=== PATIENT | female | born 1995 | race Hispanic/Latino ===

== ENCOUNTER 2017-11-22 21:21 | Observation (INO) | payer OTHER ==
[2017-11-22] MEDS ORDERED: Sodium Chloride 0.9% 1,000 ML IV STA ×2 (22:08→22:58)
[2017-11-22] MEDS ORDERED: Iohexol 240 (50 ml) PO ONE (22:09)
--- NOTE | 2017-11-22 22:12 | ED PDOC ---
HPI: Abdomen Time Seen by Provider: 11/22/17 21:52 Chief Complaint (Nursing): GI Problem Chief Complaint (Provider): diarrhea History Per: Patient History/Exam Limitations: no limitations Onset/Duration Of Symptoms: Days (2) Current Symptoms Are (Timing): Still Present Location Of Pain/Discomfort: RLQ, LLQ, Suprapubic Quality Of Discomfort: Cramping, "Pain" Additional Complaint(s): 22 y/o female presents for evaluation of multiple episodes of watery diarrhea x 2 days. Associated lower abdominal pain. Patient states she was in an intense fitness competition on Monday, and on Monday noticed muscle aches which have since been getting worse, most notable right latissimus area. Denies fever, headache, dizziness, nausea/vomiting, extremity numbness/weakness, chest pain, shortness of breath, palpitations, urinary symptoms, recent travel, sick contacts. Past Medical History Reviewed: Historical Data, Nursing Documentation, Vital Signs Vital Signs: Last Vital Signs Temp 99.4 F 11/22/17 21:43 Pulse 65 11/22/17 21:43 Resp 18 11/22/17 21:43 BP 127/66 11/22/17 21:43 Pulse Ox 100 11/22/17 22:12 - Medical History PMH: No Chronic Diseases - Surgical History Surgical History: No Surg Hx - Family History Family History: States: No Known Family Hx - Living Arrangements Living Arrangements: With Family - Home Medications Home Medications: Ambulatory Orders Medication Instructions Recorded No Known Home Med 11/23/17 - Allergies Allergies/Adverse Reactions: Allergies Allergy/AdvReac Type Severity Reaction Status Date / Time No Known Allergies Allergy Verified 11/22/17 21:43 Review of Systems ROS Statement: Except As Marked, All Systems Reviewed And Found Negative Gastrointestinal: Positive for: Abdominal Pain, Diarrhea Physical Exam - Reviewed Nursing Documentation Reviewed: Yes Vital Signs Reviewed: Yes - Physical Exam Appears: Positive for: Well, Non-toxic, No Acute Distress Head Exam: Positive for: ATRAUMATIC, NORMAL INSPECTION, NORMOCEPHALIC Skin: Positive for: Normal Color Eye Exam: Positive for: Normal appearance ENT: Positive for: Normal ENT Inspection Cardiovascular/Chest: Positive for: Regular Rate, Rhythm Respiratory: Positive for: Normal Breath Sounds Gastrointestinal/Abdominal: Positive for: Bowel Sounds, Soft, Tenderness ( diffuse lower discomfort to palpation) Back: Positive for: Normal Inspection Extremity: Positive for: Normal ROM Neurologic/Psych: Positive for: Alert, Oriented (x3) - Laboratory Results Result Diagrams: 11/22/17 22:40 11/22/17 22:40 - ECG O2 Sat by Pulse Oximetry: 100 - Progress ED Course And Treament: labs, urine, CT abd/pelvis, IV fluids, IV toradol, PO bentyl CK elevated; second NS bolus ordered Case discussed with Dr. Vasquez, medical service on-call, for admission; recommends NS 150cc/hr after boluses, and CT to be done without IV contrast, just PO EXAM: CT Abdomen and Pelvis With Intravenous Contrast EXAM DATE/TIME: 11/23/2017 12:04 AM CLINICAL HISTORY: 22 years old, female; Pain; Abdominal pain; Localized; Lower; Additional info: Abd pain, diarrhea TECHNIQUE: Axial computed tomography images of the abdomen and pelvis with intravenous contrast. All CT scans at this facility use at least one of these dose optimization techniques: automated exposure control; mA and/or kV adjustment per patient size (includes targeted exams where dose is matched to clinical indication); or iterative reconstruction. Coronal and sagittal reformatted images were created and reviewed. COMPARISON: There are no prior studies for comparison. FINDINGS: Limitation: Lack of intravenous contrast limits evaluation of solid viscera and bowel Lower thorax: Heart size is normal. There is minimal scarring at the lung bases. ABDOMEN: Liver: unremarkable Gallbladder and bile ducts: unremarkable Pancreas: unremarkable Spleen: unremarkable Adrenals: unremarkable Kidneys and ureters: unremarkable Stomach and bowel: Stomach is partially distended. There is oral contrast in the stomach. Rotation is normal. There is contrast in much of the small bowel. There is no obstruction. Ileocecal region is unremarkable. Appendix and terminal ileum are unremarkable.Colon is incompletely distended which limits evaluation. There is mild splenic flexure and descending colon wall thickening PELVIS: Appendix: See stomach and bowel Bladder: unremarkable Reproductive: Unremarkable ABDOMEN and PELVIS: Intraperitoneal space: There is no significant fluid.There is no free air. Bones/joints: There are no acute osseous abnormalities. Soft tissues: unremarkable Vasculature: Vascular structures are unremarkable. Lymph nodes: There is shotty adenopathy. IMPRESSION: Colitis IV cipro, IV flagyl dose ordered in ED IV morphine ordered for continued abdominal pain Disposition - Clinical Impression Clinical Impression: Colitis, Rhabdomyolysis - Patient ED Disposition Is Patient to be Admitted: Yes - Disposition Disposition Time: 00:54 Condition: FAIR - Pt Status Changed To: Hospital Disposition Of: Observation
[2017-11-22 22:39] LABS: SQUAMOUS EPITHIAL 3 /hpf (0-5); URINE BACTERIA OCC (<OCC); URINE BILIRUBIN NEGATIVE (NEGATIVE); URINE BLOOD NEGATIVE (NEGATIVE); URINE CLARITY CLOUDY (Clear); URINE COLOR YELLOW (YELLOW); URINE GLUCOSE (UA) NEG (Normal); URINE LEUKOCYTE ESTERASE NEG Leu/uL (Negative); URINE PROTEIN NEGATIVE (NEGATIVE); URINE UROBILINOGEN 0.2-1.0 mg/dL (0.2-1.0)
[2017-11-22] MEDS ORDERED: Iohexol 240 (50 ml) ONE (22:51)
[2017-11-22 22:53] LABS: BASO % 0.3 % (0.0-2.0); EOS % 0.3 % (0.0-4.0); HEMOGLOBIN 14.4 g/dL (12.0-16.0); LYMPH # 0.9 K/uL (1.0-4.3); LYMPH % 17.7 % (20.0-40.0); MEAN CELL VOLUME 91.8 fl (81.0-99.0); MEAN CORPUSCULAR HEMOGLOBIN 30.9 pg (27.0-31.0); MEAN CORPUSCULAR HGB CONC 33.7 g/dL (33.0-37.0); MEAN PLATELET VOLUME 8.7 fl (7.2-11.7); MONO # 0.6 K/uL (0.0-0.8); MONO % 11.1 % (0.0-10.0); NEUT # 3.6 K/uL (1.8-7.0); NEUT % 70.6 % (50.0-75.0); RBC 4.64 Mil/uL (3.80-5.20); RED CELL DISTRIBUTION WIDTH 12.9 % (11.5-14.5); WHITE BLOOD COUNT 5.1 K/uL (4.8-10.8)
[2017-11-22 22:55] LABS: ALB/GLOB RATIO 1.3 (1.0-2.1); ALBUMIN 4.2 g/dL (3.5-5.0); ALT/SGPT 46 U/L (9-52); AST/SGOT 61 U/L (14-36); BLOOD UREA NITROGEN 10 mg/dl (7-17); CALCIUM 9.7 mg/dL (8.4-10.2); GFR NON-AFRICAN AMERICAN > 60
[2017-11-23] MEDS ORDERED: Iohexol 240 (50 ml) ONE (00:17)
[2017-11-23] MEDS ORDERED: Sodium Chloride 0.9% 1,000 ML IV STA (00:27)
--- NOTE | 2017-11-23 00:45 | CT ---
EXAM: CT Abdomen and Pelvis With Intravenous Contrast EXAM DATE/TIME: 11/23/2017 12:04 AM CLINICAL HISTORY: 22 years old, female; Pain; Abdominal pain; Localized; Lower; Additional info: Abd pain, diarrhea TECHNIQUE: Axial computed tomography images of the abdomen and pelvis with intravenous contrast. All CT scans at this facility use at least one of these dose optimization techniques: automated exposure control; mA and/or kV adjustment per patient size (includes targeted exams where dose is matched to clinical indication); or iterative reconstruction. Coronal and sagittal reformatted images were created and reviewed. COMPARISON: There are no prior studies for comparison. FINDINGS: Limitation: Lack of intravenous contrast limits evaluation of solid viscera and bowel Lower thorax: Heart size is normal. There is minimal scarring at the lung bases. ABDOMEN: Liver: unremarkable Gallbladder and bile ducts: unremarkable Pancreas: unremarkable Spleen: unremarkable Adrenals: unremarkable Kidneys and ureters: unremarkable Stomach and bowel: Stomach is partially distended. There is oral contrast in the stomach. Rotation is normal. There is contrast in much of the small bowel. There is no obstruction. Ileocecal region is unremarkable. Appendix and terminal ileum are unremarkable.Colon is incompletely distended which limits evaluation. There is mild splenic flexure and descending colon wall thickening PELVIS: Appendix: See stomach and bowel Bladder: unremarkable Reproductive: Unremarkable ABDOMEN and PELVIS: Intraperitoneal space: There is no significant fluid.There is no free air. Bones/joints: There are no acute osseous abnormalities. Soft tissues: unremarkable Vasculature: Vascular structures are unremarkable. Lymph nodes: There is shotty adenopathy. IMPRESSION: Colitis
[2017-11-23] MEDS ORDERED: Ciprofloxacin 400mg/200ml D5W 400 MG/200 ML BAG IV ONE (00:50)
[2017-11-23] MEDS ORDERED: metroNIDAZOLE 500mg/100ml NS 100 ML IV STA (00:50)
[2017-11-23 06:47] LABS: HEMOGLOBIN 12.6 g/dL (12.0-16.0); MEAN CELL VOLUME 91.8 fl (81.0-99.0); MEAN CORPUSCULAR HGB CONC 33.8 g/dL (33.0-37.0); RBC 4.06 Mil/uL (3.80-5.20); RED CELL DISTRIBUTION WIDTH 12.8 % (11.5-14.5); WHITE BLOOD COUNT 5.4 K/uL (4.8-10.8)
[2017-11-23 07:14] LABS: ALB/GLOB RATIO 1.2 (1.0-2.1); ALBUMIN 3.5 g/dL (3.5-5.0); ALT/SGPT 39 U/L (9-52); AST/SGOT 56 U/L (14-36); BLOOD UREA NITROGEN 7 mg/dl (7-17); CALCIUM 8.5 mg/dL (8.4-10.2); GFR NON-AFRICAN AMERICAN > 60
[2017-11-23] MEDS: metroNIDAZOLE 500mg/100ml NS 100 ML IVPB SCH ×2 (08:43→16:11)
[2017-11-23] MEDS: Sodium Chloride 0.9% 1,000 ML IV SCH ×2 (10:59→16:12)
[2017-11-23] MEDS: Ciprofloxacin 400mg/200ml D5W 400 MG/200 ML BAG IVPB SCH ×2 (12:50→20:50)
--- NOTE | 2017-11-23 13:37 | CP.PCM.HP ---
History of Present Illness - History of Present Illness History of Present Illness: Abdominal pain. 22 y/o F, came to [facility] [place] to be evaluated for lower abdominal pain, described as sharp, severe intensity 9:10, x 2 days [employer], associated to nausea, multiple episodes of watery diarrhea, non bloody, cramping type, that began 24 hrs prior to admission, Pt had a fitness competition last weekend when onset of illness began Worsening symptoms: Muscle ache/ weakness Aggravated factor: Food. Pt denied: Fever, chills, vomiting, headache, numbness, CP, palpitations, SOB, cough, urinary symptoms, sick contact, recent travel out of [facility]. Abd/Pelv CT showed: Shotty adenopathy lymph nodes, rest unremarkable. Present on Admission - Present on Admission Any Indicators Present on Admission: No Review of Systems - Constitutional Constitutional: Other (negaive) - EENT Eyes: Other (negative) Ears: Other (negative) Nose/Mouth/Throat: Other (negative) - Cardiovascular Cardiovascular: Other (negative) - Respiratory Respiratory: Other (negative) - Gastrointestinal Gastrointestinal: Abdominal Pain, Cramping, Diarrhea, Nausea - Genitourinary Genitourinary: Other (negative) - Musculoskeletal Musculoskeletal: Muscle Weakness - Integumentary Integumentary: Other (negative) - Neurological Neurological: Other (negative) - Psychiatric Psychiatric: Other (negative) - Endocrine Endocrine: Other (negative) - Hematologic/Lymphatic Hematologic: Other (negative) Past Patient History - Past Medical History & Family History Past Medical History?: Yes Pertinent Family History: Unknown - Past Social History Smoking Status: Never Smoked Alcohol: None Drugs: Denies Home Situation {Lives}: Alone - CARDIAC Hx Cardiac Disorders: No - PULMONARY Hx Respiratory Disorders: No - NEUROLOGICAL Hx Neurological Disorder: No - HEENT Hx HEENT Problems: No - RENAL Hx Chronic Kidney Disease: No - ENDOCRINE/METABOLIC Hx Endocrine Disorders: No - HEMATOLOGICAL/ONCOLOGICAL Hx Blood Disorders: No Hx AIDS: No Hx Human Immunodeficiency Virus (HIV): No - INTEGUMENTARY Hx Dermatological Problems: No - MUSCULOSKELETAL/RHEUMATOLOGICAL Hx Musculoskeletal Disorders: No Hx Falls: No - GASTROINTESTINAL Hx Gastrointestinal Disorders: No - GENITOURINARY/GYNECOLOGICAL Hx Genitourinary Disorders: No - PSYCHIATRIC Hx Psychophysiologic Disorder: No Hx Substance Use: No - SURGICAL HISTORY Hx Surgeries: No - ANESTHESIA Hx Anesthesia: No Meds Allergies/Adverse Reactions: Allergies Allergy/AdvReac Type Severity Reaction Status Date / Time No Known Allergies Allergy Verified 11/22/17 21:43 Physical Exam - Constitutional Appears: No Acute Distress - Head Exam Head Exam: NORMAL INSPECTION - Eye Exam Eye Exam: PERRL - ENT Exam ENT Exam: Normal Exam - Neck Exam Neck exam: Positive for: Normal Inspection - Respiratory Exam Respiratory Exam: Clear to Auscultation Bilateral - Cardiovascular Exam Cardiovascular Exam: REGULAR RHYTHM - GI/Abdominal Exam GI & Abdominal Exam: Normal Bowel Sounds, Soft, Tenderness (mild diffused on palpation,LQ). absent: Distended, Guarding, Rebound - Extremities Exam Extremities exam: Positive for: normal inspection - Back Exam Back exam: NORMAL INSPECTION - Neurological Exam Neurological exam: Alert, Oriented x3 Additional comments: No motor/sensory deficit. - Psychiatric Exam Psychiatric exam: Normal Mood - Skin Skin Exam: Warm Results - Vital Signs Recent Vital Signs: Last Vital Signs Temp 98.0 F 11/23/17 07:57 Pulse 57 L 11/23/17 07:57 Resp 20 11/23/17 07:57 BP 111/65 11/23/17 07:57 Pulse Ox 96 11/23/17 07:57 - Labs Result Diagrams: 11/24/17 05:46 11/24/17 05:46 Labs: Laboratory Results - last 24 hr 11/22/17 11/22/17 11/22/17 22:30 22:40 22:40 WBC 5.1 RBC 4.64 Hgb 14.4 Hct 42.6 MCV 91.8 MCH 30.9 MCHC 33.7 RDW 12.9 Plt Count 189 MPV 8.7 Neut % (Auto) 70.6 Lymph % (Auto) 17.7 L [place] % (Auto) 11.1 H Eos % (Auto) 0.3 Baso % (Auto) 0.3 Neut # (Auto) 3.6 Lymph # (Auto) 0.9 L [place] # (Auto) 0.6 Eos # (Auto) 0.0 Baso # (Auto) 0.0 Sodium 141 Potassium 3.8 Chloride 100 Carbon Dioxide 29 Anion Gap 16 BUN 10 Creatinine 0.8 Est GFR ( Amer) > 60 Est GFR (Non-Af Amer) > 60 Random Glucose 95 Calcium 9.7 Total Bilirubin 0.4 AST 61 H ALT 46 Alkaline Phosphatase 88 Total Creatine Kinase 1253 H Total Protein 7.6 Albumin 4.2 Globulin 3.4 Albumin/Globulin Ratio 1.3 Urine Color Yellow Urine Clarity Cloudy Urine pH 8.0 Ur Specific [place] 1.016 Urine Protein Negative Urine Glucose (UA) Neg Urine Ketones Negative Urine Blood Negative Urine Nitrate Negative Urine Bilirubin Negative Urine Urobilinogen 0.2-1.0 Ur Leukocyte Esterase Neg Urine RBC (Auto) 1 Urine Microscopic WBC 1 Ur Squamous Epith Cells 3 Urine Bacteria Occ H 11/23/17 11/23/17 06:05 06:05 WBC 5.4 RBC 4.06 Hgb 12.6 Hct 37.3 MCV 91.8 MCH 31.0 MCHC 33.8 RDW 12.8 Plt Count 182 MPV Neut % (Auto) Lymph % (Auto) [place] % (Auto) Eos % (Auto) Baso % (Auto) Neut # (Auto) Lymph # (Auto) [place] # (Auto) Eos # (Auto) Baso # (Auto) Sodium 139 Potassium 4.0 Chloride 106 Carbon Dioxide 23 Anion Gap 14 BUN 7 Creatinine 0.7 Est GFR ( Amer) > 60 Est GFR (Non-Af Amer) > 60 Random Glucose 99 Calcium 8.5 Total Bilirubin 0.3 AST 56 H ALT 39 Alkaline Phosphatase 82 Total Creatine Kinase 1190 H Total Protein 6.5 Albumin 3.5 Globulin 2.9 Albumin/Globulin Ratio 1.2 Urine Color Urine Clarity Urine pH Ur Specific [place] Urine Protein Urine Glucose (UA) Urine Ketones Urine Blood Urine Nitrate Urine Bilirubin Urine Urobilinogen Ur Leukocyte Esterase Urine RBC (Auto) Urine Microscopic WBC Ur Squamous Epith Cells Urine Bacteria reviewed J.P. - Imaging and Cardiology CT scan - abdomen Status: Report reviewed by me (J.P.) CT scan - pelvis Status: Report reviewed by me (J.P.) Assessment & Plan (1) Colitis Status: Acute Priority: High (2) Rhabdomyolysis Status: Acute Priority: High - Assessment and Plan (Free Text) Plan: F/U Blood C-S, keep in liquid diet, continue with Flagyl, Cipro, Diflucan and rest of Tx. - Date & Time Date: 11/23/17 Time: 10:50
[2017-11-24] MEDS: Sodium Chloride 0.9% 1,000 ML IV SCH ×3 (00:08→06:49)
[2017-11-24] MEDS: metroNIDAZOLE 500mg/100ml NS 100 ML IVPB SCH ×3 (00:52→15:59)
[2017-11-24 06:04] LABS: HEMOGLOBIN 13.1 g/dL (12.0-16.0); MEAN CELL VOLUME 92.1 fl (81.0-99.0); MEAN CORPUSCULAR HEMOGLOBIN 30.7 pg (27.0-31.0); MEAN CORPUSCULAR HGB CONC 33.3 g/dL (33.0-37.0); RBC 4.26 Mil/uL (3.80-5.20); RED CELL DISTRIBUTION WIDTH 13.2 % (11.5-14.5); WHITE BLOOD COUNT 5.2 K/uL (4.8-10.8)
[2017-11-24 06:47] LABS: ALB/GLOB RATIO 1.3 (1.0-2.1); ALBUMIN 3.8 g/dL (3.5-5.0); ALT/SGPT 35 U/L (9-52); AST/SGOT 53 U/L (14-36); BLOOD UREA NITROGEN 7 mg/dl (7-17); GFR NON-AFRICAN AMERICAN > 60
[2017-11-24] MEDS: Ciprofloxacin 400mg/200ml D5W 400 MG/200 ML BAG IVPB SCH ×2 (08:46→21:25)
--- NOTE | 2017-11-24 13:39 | CP.PCM.PN ---
Subjective - Date & Time of Evaluation Date of Evaluation: 11/24/17 Time of Evaluation: 13:40 - Subjective Subjective: F/U abdominal pain no abdominal pain , no N/V Objective - Vital Signs/Intake and Output Vital Signs (last 24 hours): Temp Pulse Resp BP Pulse Ox 98.3 F 56 L 18 113/67 99 11/24/17 07:44 11/24/17 07:44 11/24/17 07:44 11/24/17 07:44 11/24/17 07:44 - Medications Medications: Current Medications Clotrimazole (Lotrimin 1% Vaginal) 1 applic VG HS [facility] Fluconazole (Diflucan) 100 mg PO DAILY MELINDA PRN Reason: Protocol Last Admin: 11/24/17 08:45 Dose: 100 mg Ciprofloxacin (Cipro 400mg/200ml Dsw) 400 mg in 200 mls @ 200 mls/hr IVPB Q12 MELINDA PRN Reason: Protocol Last Admin: 11/24/17 08:46 Dose: 200 mls/hr Metronidazole (Flagyl 500mg/100ml Ns) 100 mls @ 100 mls/hr IVPB Q8 MELINDA PRN Reason: Protocol Last Admin: 11/24/17 08:45 Dose: 100 mls/hr Morphine Sulfate (Morphine) 2 mg IVP Q4 PRN PRN Reason: Pain, moderate (4-7) Last Admin: 11/24/17 11:25 Dose: 2 mg Ondansetron HCl (Zofran Inj) 4 mg IVP Q4 PRN PRN Reason: Nausea/Vomiting Last Admin: 11/24/17 10:39 Dose: 4 mg - Labs Labs: 11/24/17 05:46 11/24/17 05:46 - Constitutional Appears: No Acute Distress - Head Exam Head Exam: NORMAL INSPECTION - Eye Exam Eye Exam: PERRL - ENT Exam ENT Exam: Normal Exam - Neck Exam Neck Exam: Normal Inspection - Respiratory Exam Respiratory Exam: Clear to Ausculation Bilateral - Cardiovascular Exam Cardiovascular Exam: REGULAR RHYTHM - GI/Abdominal Exam GI & Abdominal Exam: Soft, Tenderness (minimal LLQ), Normal Bowel Sounds. absent: Guarding, Rebound - Extremities Exam Extremities Exam: Normal Inspection - Back Exam Back Exam: NORMAL INSPECTION - Neurological Exam Neurological Exam: Awake, CN II-XII Intact, Oriented x3. absent: Motor Sensory Deficit - Psychiatric Exam Psychiatric exam: Normal Affect - Skin Skin Exam: Warm Assessment and Plan (1) Colitis Status: Acute (2) Rhabdomyolysis Status: Acute - Assessment and Plan (Free Text) Plan: continue Cipro , Flagyl , Morphine , Protonix , f/u GI consult
--- NOTE | 2017-11-24 18:04 | CP.PCM.CON ---
History of Present Illness - History of Present Illness History of Present Illness: 22 yo female presenting to ER with weakness and myalgias.She also had crampy lower abdominal pain and diarrhea. Patient started feeling ill after a 2 day crossfit competition during which she exerted herself more than usual. No prior significant medical history. Review of Systems - Constitutional Constitutional: absent: Chills - EENT Eyes: absent: Blurred Vision Ears: absent: Decreased Hearing Nose/Mouth/Throat: absent: Epistaxis - Cardiovascular Cardiovascular: absent: Chest Pain - Respiratory Respiratory: absent: Dyspnea - Gastrointestinal Gastrointestinal: As Per HPI - Musculoskeletal Musculoskeletal: As Per HPI Past Patient History - Past Medical History & Family History Past Medical History?: Yes - Past Social History Smoking Status: Never Smoked Alcohol: None Drugs: Denies Home Situation {Lives}: Alone - CARDIAC Hx Cardiac Disorders: No - PULMONARY Hx Respiratory Disorders: No - NEUROLOGICAL Hx Neurological Disorder: No - HEENT Hx HEENT Problems: No - RENAL Hx Chronic Kidney Disease: No - ENDOCRINE/METABOLIC Hx Endocrine Disorders: No - HEMATOLOGICAL/ONCOLOGICAL Hx Blood Disorders: No Hx AIDS: No Hx Human Immunodeficiency Virus (HIV): No - INTEGUMENTARY Hx Dermatological Problems: No - MUSCULOSKELETAL/RHEUMATOLOGICAL Hx Musculoskeletal Disorders: No Hx Falls: No - GASTROINTESTINAL Hx Gastrointestinal Disorders: No - GENITOURINARY/GYNECOLOGICAL Hx Genitourinary Disorders: No - PSYCHIATRIC Hx Psychophysiologic Disorder: No Hx Substance Use: No - SURGICAL HISTORY Hx Surgeries: No - ANESTHESIA Hx Anesthesia: No Meds Allergies/Adverse Reactions: Allergies Allergy/AdvReac Type Severity Reaction Status Date / Time No Known Allergies Allergy Verified 11/22/17 21:43 - Medications Medications: Current Medications Clotrimazole (Lotrimin 1% Vaginal) 1 applic VG HS [facility] Fluconazole (Diflucan) 100 mg PO DAILY MELINDA PRN Reason: Protocol Last Admin: 11/24/17 08:45 Dose: 100 mg Ciprofloxacin (Cipro 400mg/200ml Dsw) 400 mg in 200 mls @ 200 mls/hr IVPB Q12 MELINDA PRN Reason: Protocol Last Admin: 11/24/17 08:46 Dose: 200 mls/hr Metronidazole (Flagyl 500mg/100ml Ns) 100 mls @ 100 mls/hr IVPB Q8 MELINDA PRN Reason: Protocol Last Admin: 11/24/17 15:59 Dose: 100 mls/hr Morphine Sulfate (Morphine) 2 mg IVP Q4 PRN PRN Reason: Pain, moderate (4-7) Last Admin: 11/24/17 11:25 Dose: 2 mg Ondansetron HCl (Zofran Inj) 4 mg IVP Q4 PRN PRN Reason: Nausea/Vomiting Last Admin: 11/24/17 15:40 Dose: 4 mg Physical Exam - Head Exam Head Exam: ATRAUMATIC - Eye Exam Eye Exam: Normal appearance - ENT Exam ENT Exam: Mucous Membranes Moist - Respiratory Exam Respiratory Exam: Clear to Auscultation Bilateral - Cardiovascular Exam Cardiovascular Exam: REGULAR RHYTHM - GI/Abdominal Exam GI & Abdominal Exam: Normal Bowel Sounds, Soft, Tenderness Additional comments: LLQ pain Results - Vital Signs Recent Vital Signs: Last Vital Signs Temp 97.9 F 11/24/17 16:01 Pulse 60 11/24/17 16:01 Resp 20 11/24/17 16:01 BP 108/66 11/24/17 16:01 Pulse Ox 99 11/24/17 16:01 - Labs Result Diagrams: 11/24/17 05:46 11/24/17 05:46 Labs: Laboratory Results - last 24 hr 11/24/17 11/24/17 05:46 05:46 WBC 5.2 RBC 4.26 Hgb 13.1 Hct 39.3 MCV 92.1 MCH 30.7 MCHC 33.3 RDW 13.2 Plt Count 194 Sodium 142 Potassium 4.1 Chloride 102 Carbon Dioxide 29 Anion Gap 15 BUN 7 Creatinine 0.8 Est GFR ( Amer) > 60 Est GFR (Non-Af Amer) > 60 Random Glucose 90 Calcium 9.0 Total Bilirubin 0.4 AST 53 H ALT 35 Alkaline Phosphatase 67 Total Creatine Kinase 967 H Total Protein 6.6 Albumin 3.8 Globulin 2.9 Albumin/Globulin Ratio 1.3 Assessment & Plan (1) Rhabdomyolysis Assessment and Plan: CPK mproving with hydration. Renal function normal. Feels better. Status: Acute Priority: High (2) Colitis Assessment and Plan: Likely ischemic colitis related to the intense exercise and should resolve spontaneously. Abdominal pain has significantly lessened over past 2 days and bleeding is minimal. When discharged may stop antibiotics. Colitis can be followed clinically and as long as pain resolves no further imaging or colonoscopy necessary. Status: Acute Priority: High
[2017-11-25] MEDS: metroNIDAZOLE 500mg/100ml NS 100 ML IVPB SCH ×3 (01:14→17:03)
[2017-11-25] MEDS: Ciprofloxacin 400mg/200ml D5W 400 MG/200 ML BAG IVPB SCH ×2 (08:18→21:55)
[2017-11-25] MEDS: Sodium Chloride 0.9% 1,000 ML IV SCH ×3 (13:14→22:04)
[2017-11-25 13:32] LABS: HEMOGLOBIN 13.8 g/dL (12.0-16.0); MEAN CELL VOLUME 91.3 fl (81.0-99.0); MEAN CORPUSCULAR HEMOGLOBIN 30.7 pg (27.0-31.0); MEAN CORPUSCULAR HGB CONC 33.6 g/dL (33.0-37.0); RBC 4.51 Mil/uL (3.80-5.20); RED CELL DISTRIBUTION WIDTH 12.8 % (11.5-14.5); WHITE BLOOD COUNT 6.2 K/uL (4.8-10.8)
[2017-11-25 13:44] LABS: ALB/GLOB RATIO 1.4 (1.0-2.1); ALBUMIN 4.2 g/dL (3.5-5.0); ALT/SGPT 44 U/L (9-52); AST/SGOT 45 U/L (14-36); BLOOD UREA NITROGEN 7 mg/dl (7-17); CALCIUM 9.1 mg/dL (8.4-10.2); GFR NON-AFRICAN AMERICAN > 60
[2017-11-25] MEDS: Pantoprazole 40 mg EC Tab PO SCH (16:19)
--- NOTE | 2017-11-25 17:37 | CP.PCM.PN ---
Subjective - Date & Time of Evaluation Date of Evaluation: 11/25/17 Time of Evaluation: 10:20 - Subjective Subjective: F/U abdominal pain diarrhea, no nausea, no abdominal pain, vaginal , perineal itching Objective - Vital Signs/Intake and Output Vital Signs (last 24 hours): Temp Pulse Resp BP Pulse Ox 99 F 43 L 18 99/62 L 99 11/25/17 16:42 11/25/17 16:42 11/25/17 16:42 11/25/17 16:42 11/25/17 16:42 - Medications Medications: Current Medications Clotrimazole (Lotrimin 1% Vaginal) 1 applic VG HS [facility] Last Admin: 11/24/17 21:26 Dose: 1 applic Fluconazole (Diflucan) 100 mg PO DAILY [facility] PRN Reason: Protocol Last Admin: 11/25/17 08:20 Dose: 100 mg Ciprofloxacin (Cipro 400mg/200ml Dsw) 400 mg in 200 mls @ 200 mls/hr IVPB Q12 [facility] PRN Reason: Protocol Last Admin: 11/25/17 08:18 Dose: 200 mls/hr Metronidazole (Flagyl 500mg/100ml Ns) 100 mls @ 100 mls/hr IVPB Q8 [facility] PRN Reason: Protocol Last Admin: 11/25/17 17:03 Dose: 100 mls/hr Sodium Chloride (Sodium Chloride 0.9%) 1,000 mls @ 150 mls/hr IV .Q6H40M [facility] Stop: 11/26/17 12:27 Last Admin: 11/25/17 13:14 Dose: 150 mls/hr Morphine Sulfate (Morphine) 2 mg IVP Q4 PRN PRN Reason: Pain, moderate (4-7) Last Admin: 11/25/17 16:12 Dose: 2 mg Morphine Sulfate (Morphine) 4 mg IVP Q4 PRN PRN Reason: Pain, severe (8-10) Last Admin: 11/25/17 08:10 Dose: 4 mg Ondansetron HCl (Zofran Inj) 4 mg IVP Q4 PRN PRN Reason: Nausea/Vomiting Last Admin: 11/25/17 13:09 Dose: 4 mg Pantoprazole Sodium (Protonix Ec Tab) 40 mg PO DAILY [facility] Last Admin: 11/25/17 16:19 Dose: 40 mg - Labs Labs: 11/25/17 13:25 11/25/17 13:25 - Constitutional Appears: No Acute Distress - Head Exam Head Exam: NORMAL INSPECTION - Eye Exam Eye Exam: PERRL - ENT Exam ENT Exam: Normal Exam - Neck Exam Neck Exam: Normal Inspection - Respiratory Exam Respiratory Exam: Clear to Ausculation Bilateral - Cardiovascular Exam Cardiovascular Exam: REGULAR RHYTHM - GI/Abdominal Exam GI & Abdominal Exam: Soft, Normal Bowel Sounds - Rectal Exam Rectal Exam: NORMAL INSPECTION - Extremities Exam Extremities Exam: Normal Inspection - Back Exam Back Exam: NORMAL INSPECTION - Neurological Exam Neurological Exam: Alert, CN II-XII Intact, Oriented x3. absent: Motor Sensory Deficit - Psychiatric Exam Psychiatric exam: Normal Affect - Skin Skin Exam: Warm Assessment and Plan (1) Colitis Status: Acute (2) Rhabdomyolysis Status: Acute - Assessment and Plan (Free Text) Plan: CK 569, continue IVF NS ,Cipro , Flagyl , Morphine , Protonix , Diflucan , Lotrisone
[2017-11-25] MEDS ORDERED: DiphenhydrAMINE 50 mg/ml Inj IVP ONE (22:00)
[2017-11-25] MEDS: DiphenhydrAMINE 50 mg/ml Inj IVP SCH (22:48)
[2017-11-26] MEDS: metroNIDAZOLE 500mg/100ml NS 100 ML IVPB SCH ×2 (00:42→08:03)
[2017-11-26] MEDS: Sodium Chloride 0.9% 1,000 ML IV SCH ×2 (02:00→08:14)
[2017-11-26 07:23] LABS: MEAN CORPUSCULAR HEMOGLOBIN 30.8 pg (27.0-31.0); MEAN CORPUSCULAR HGB CONC 33.5 g/dL (33.0-37.0); RBC 4.23 Mil/uL (3.80-5.20); RED CELL DISTRIBUTION WIDTH 12.9 % (11.5-14.5)
[2017-11-26 07:39] LABS: ALB/GLOB RATIO 1.3 (1.0-2.1); ALBUMIN 3.5 g/dL (3.5-5.0); ALT/SGPT 39 U/L (9-52); AST/SGOT 37 U/L (14-36); BLOOD UREA NITROGEN 6 mg/dl (7-17); CALCIUM 8.8 mg/dL (8.4-10.2); GFR NON-AFRICAN AMERICAN > 60
[2017-11-26] MEDS: Ciprofloxacin 400mg/200ml D5W 400 MG/200 ML BAG IVPB SCH (08:05)
[2017-11-26] MEDS: Pantoprazole 40 mg EC Tab PO SCH (08:16)
[2017-11-26 08:27] VITALS: O2SAT 98
--- NOTE | 2017-11-26 14:21 | CP.PCM.PN ---
Subjective - Date & Time of Evaluation Date of Evaluation: 11/26/17 Time of Evaluation: 14:18 - Subjective Subjective: Clinically continues to improve , minimal abdominal pain. Objective - Vital Signs/Intake and Output Vital Signs (last 24 hours): Temp Pulse Resp BP Pulse Ox 97.5 F L 45 L 20 108/69 98 11/26/17 08:27 11/26/17 08:27 11/26/17 08:27 11/26/17 08:27 11/26/17 08:27 - Medications Medications: Current Medications Clotrimazole (Lotrimin 1% Vaginal) 1 applic VG HS [facility] Last Admin: 11/25/17 22:03 Dose: 1 applic Diphenhydramine HCl (Benadryl) 25 mg IVP HS [facility] Last Admin: 11/25/17 22:48 Dose: 25 mg Fluconazole (Diflucan) 100 mg PO DAILY MELINDA PRN Reason: Protocol Last Admin: 11/26/17 08:05 Dose: 100 mg Morphine Sulfate (Morphine) 2 mg IVP Q4 PRN PRN Reason: Pain, moderate (4-7) Last Admin: 11/26/17 13:33 Dose: 2 mg Morphine Sulfate (Morphine) 4 mg IVP Q4 PRN PRN Reason: Pain, severe (8-10) Last Admin: 11/26/17 03:28 Dose: 4 mg Ondansetron HCl (Zofran Inj) 4 mg IVP Q4 PRN PRN Reason: Nausea/Vomiting Last Admin: 11/26/17 09:09 Dose: 4 mg - Labs Labs: 11/26/17 05:30 11/26/17 05:30 - Head Exam Head Exam: ATRAUMATIC - Eye Exam Pupil Exam: PERRL - Neck Exam Neck Exam: Full ROM - Respiratory Exam Respiratory Exam: Clear to Ausculation Bilateral - Cardiovascular Exam Cardiovascular Exam: +S1, +S2 - GI/Abdominal Exam GI & Abdominal Exam: Soft, Tenderness, Normal Bowel Sounds Additional comments: mild LLQ tenderness Assessment and Plan (1) Rhabdomyolysis Assessment & Plan: CPKs. Continue to improve daily. Status: Acute (2) Colitis Assessment & Plan: Likely ischemic. Will resolve spontaneously. Advance diet and d/c antibiotics. Stable for discharge from GI perspective. Status: Acute
--- NOTE | 2017-11-26 15:30 | CP.PCM.PN ---
Subjective - Date & Time of Evaluation Date of Evaluation: 11/26/17 Time of Evaluation: 16:10 - Subjective Subjective: F/U Abdominal pain. No abdominal pain, no diarrhea. Objective - Vital Signs/Intake and Output Vital Signs (last 24 hours): Temp Pulse Resp BP Pulse Ox 97.5 F L 45 L 20 108/69 98 11/26/17 08:27 11/26/17 08:27 11/26/17 08:27 11/26/17 08:27 11/26/17 08:27 - Medications Medications: Current Medications Clotrimazole (Lotrimin 1% Vaginal) 1 applic VG HS [facility] Last Admin: 11/25/17 22:03 Dose: 1 applic Diphenhydramine HCl (Benadryl) 25 mg IVP [facility] Last Admin: 11/25/17 22:48 Dose: 25 mg Fluconazole (Diflucan) 100 mg PO DAILY [facility] PRN Reason: Protocol Last Admin: 11/26/17 08:05 Dose: 100 mg Morphine Sulfate (Morphine) 2 mg IVP Q4 PRN PRN Reason: Pain, moderate (4-7) Last Admin: 11/26/17 13:33 Dose: 2 mg Morphine Sulfate (Morphine) 4 mg IVP Q4 PRN PRN Reason: Pain, severe (8-10) Last Admin: 11/26/17 03:28 Dose: 4 mg Ondansetron HCl (Zofran Inj) 4 mg IVP Q4 PRN PRN Reason: Nausea/Vomiting Last Admin: 11/26/17 09:09 Dose: 4 mg - Labs Labs: 11/26/17 05:30 11/26/17 05:30 - Constitutional Appears: No Acute Distress - Head Exam Head Exam: NORMAL INSPECTION - Eye Exam Eye Exam: PERRL - ENT Exam ENT Exam: Normal Exam - Neck Exam Neck Exam: Normal Inspection - Respiratory Exam Respiratory Exam: Clear to Ausculation Bilateral - Cardiovascular Exam Cardiovascular Exam: REGULAR RHYTHM - GI/Abdominal Exam GI & Abdominal Exam: Soft, Normal Bowel Sounds - Extremities Exam Extremities Exam: Normal Inspection - Back Exam Back Exam: NORMAL INSPECTION - Neurological Exam Neurological Exam: Alert, CN II-XII Intact, Oriented x3. absent: Motor Sensory Deficit - Psychiatric Exam Psychiatric exam: Normal Affect - Skin Skin Exam: Warm Assessment and Plan (1) Colitis Status: Acute (2) Rhabdomyolysis Status: Acute - Assessment and Plan (Free Text) Plan: Abx DC by GI, observe tolerance with advanced diet.
[2017-11-26] MEDS: DiphenhydrAMINE 50 mg/ml Inj IVP SCH (21:30)
[2017-11-27 08:02] VITALS: BP 106/63; PULSE 55; RESP 18; TEMP 97.5
--- NOTE | 2017-12-04 10:54 | CP.PCM.DIS ---
Provider - Provider Date of Admission: 11/25/17 18:27 Attending physician: Tyrone Vasquez MD Consults: Gastroenterology Time Spent in preparation of Discharge (in minutes): 25 Diagnosis - Discharge Diagnosis (1) Colitis Status: Acute Priority: High (2) Rhabdomyolysis Status: Acute Priority: High Hospital Course - Lab Results Lab Results: Micro Results 11/23/17 01:10 Blood Blood Culture - Final NO GROWTH AFTER 5 DAYS 11/23/17 01:10 Blood Gram Stain - Final TEST NOT PERFORMED Most Recent Lab Values WBC 5.0 K/uL (4.8-10.8) 11/26/17 05:30 RBC 4.23 Mil/uL (3.80-5.20) 11/26/17 05:30 Hgb 13.0 g/dL (12.0-16.0) 11/26/17 05:30 Hct 38.9 % (34.0-47.0) 11/26/17 05:30 MCV 92.0 fl (81.0-99.0) 11/26/17 05:30 MCH 30.8 pg (27.0-31.0) 11/26/17 05:30 MCHC 33.5 g/dL (33.0-37.0) 11/26/17 05:30 RDW 12.9 % (11.5-14.5) 11/26/17 05:30 Plt Count 221 K/uL (130-400) 11/26/17 05:30 MPV 8.7 fl (7.2-11.7) 11/22/17 22:40 Neut % (Auto) 70.6 % (50.0-75.0) 11/22/17 22:40 Lymph % (Auto) 17.7 % (20.0-40.0) L 11/22/17 22:40 Davie % (Auto) 11.1 % (0.0-10.0) H 11/22/17 22:40 Eos % (Auto) 0.3 % (0.0-4.0) 11/22/17 22:40 Baso % (Auto) 0.3 % (0.0-2.0) 11/22/17 22:40 Neut # (Auto) 3.6 K/uL (1.8-7.0) 11/22/17 22:40 Lymph # (Auto) 0.9 K/uL (1.0-4.3) L 11/22/17 22:40 Davie # (Auto) 0.6 K/uL (0.0-0.8) 11/22/17 22:40 Eos # (Auto) 0.0 K/uL (0.0-0.7) 11/22/17 22:40 Baso # (Auto) 0.0 K/uL (0.0-0.2) 11/22/17 22:40 Sodium 141 mmol/l (132-148) 11/26/17 05:30 Potassium 4.1 MMOL/L (3.6-5.0) 11/26/17 05:30 Chloride 102 mmol/L (98-107) 11/26/17 05:30 Carbon Dioxide 27 mmol/L (22-30) 11/26/17 05:30 Anion Gap 16 (10-20) 11/26/17 05:30 BUN 6 mg/dl (7-17) L 11/26/17 05:30 Creatinine 0.8 mg/dl (0.7-1.2) 11/26/17 05:30 Est GFR ( Amer) > 60 11/26/17 05:30 Est GFR (Non-Af Amer) > 60 11/26/17 05:30 Random Glucose 89 mg/dL (65-105) 11/26/17 05:30 Calcium 8.8 mg/dL (8.4-10.2) 11/26/17 05:30 Total Bilirubin 0.3 mg/dl (0.2-1.3) 11/26/17 05:30 AST 37 U/L (14-36) H 11/26/17 05:30 ALT 39 U/L (9-52) 11/26/17 05:30 Alkaline Phosphatase 63 U/L (38-126) 11/26/17 05:30 Total Creatine Kinase 270 U/L (30-135) H 11/26/17 05:30 Total Protein 6.2 G/DL (6.3-8.2) L 11/26/17 05:30 Albumin 3.5 g/dL (3.5-5.0) 11/26/17 05:30 Globulin 2.7 gm/dL (2.2-3.9) 11/26/17 05:30 Albumin/Globulin Ratio 1.3 (1.0-2.1) 11/26/17 05:30 Urine Color Yellow (YELLOW) 11/22/17 22:30 Urine Clarity Cloudy (Clear) 11/22/17 22:30 Urine pH 8.0 (5.0-8.0) 11/22/17 22:30 Ur Specific [place] 1.016 (1.003-1.030) 11/22/17 22:30 Urine Protein Negative mg/dL (NEGATIVE) 11/22/17 22:30 Urine Glucose (UA) Neg mg/dL (Normal) 11/22/17 22:30 Urine Ketones Negative mg/dL (NEGATIVE) 11/22/17 22:30 Urine Blood Negative (NEGATIVE) 11/22/17 22:30 Urine Nitrate Negative (NEGATIVE) 11/22/17 22:30 Urine Bilirubin Negative (NEGATIVE) 11/22/17 22:30 Urine Urobilinogen 0.2-1.0 mg/dL (0.2-1.0) 11/22/17 22:30 Ur Leukocyte Esterase Neg Bertin/uL (Negative) 11/22/17 22:30 Urine RBC (Auto) 1 /hpf (0-3) 11/22/17 22:30 Urine Microscopic WBC 1 /hpf (0-5) 11/22/17 22:30 Ur Squamous Epith Cells 3 /hpf (0-5) 11/22/17 22:30 Urine Bacteria Occ (<OCC) H 11/22/17 22:30 - Date & Time of H&P Date of H&P: 11/23/17 Time of H&P: 10:50 Discharge Exam - Head Exam Head Exam: NORMAL INSPECTION Discharge Plan - Follow Up Plan Condition: FAIR Disposition: HOME/ ROUTINE Patient education suggested?: Yes Instructions: Diarrhea in Adolescents and Adults, Rhabdomyolysis (DC) Additional Instructions: follow up with primary MD 1 week Referrals: [facility] [Outside] Tyrone Vasquez MD [Staff Provider] - Francisco Dalton MD [Staff Provider] -
== END 2017-11-27 13:45 | disposition home or self-care (01) ==
LOC: H.ER 21:21 → H.ERHOLD 11-23 00:51 → H.MEDSURG1 11-23 02:00 → OBSVTOIN 11-25 18:27 → INTOOBSV 11-25 18:27
PROVIDERS: ADMIT Internal Medicine Pulmonary Disease; ATTEND Internal Medicine Pulmonary Disease
DX: K55.9 Vascular disorder of intestine, unspecified (principal); M62.82 Rhabdomyolysis
CPT/HCPCS: 36415; 74176; 80053; 81003; 81025; 82550; 85025; 85027; 87040; 96360; 99282; G0378; J0744; J1200; J1885; J2270; J2405; J7030; Q9966

== ENCOUNTER 2017-12-23 23:39 | Emergency (ER) | payer OTHER ==
[2017-12-23] MEDS ORDERED: DiphenhydrAMINE 50 mg/ml Inj ONE (23:46)
[2017-12-24] MEDS ORDERED: DiphenhydrAMINE 50 mg/ml Inj IM STA (00:14)
--- NOTE | 2017-12-24 01:33 | ED PDOC ---
HPI: Psych/Substance Abuse Time Seen by Provider: 12/23/17 23:42 Chief Complaint (Nursing): Alcohol Ingestion Chief Complaint (Provider): Alcohol Ingestion History Per: Patient History/Exam Limitations: intoxication Onset/Duration Of Symptoms: Mins (prior to arrival) Current Symptoms Are (Timing): Still Present Suicide/Self Injury Attempted (Context): None Modifying Factor(s): Alcohol Associated Symptoms: Anger Additional History Per: Friend Additional Complaint(s): 22 year old female with reported history of depression and anxiety presents to the ED via EMS with alcohol intoxication. Friend reports that while out at a club, drinking with patient, the bouncer notified her that the patient was acting inappropriately and could not control herself. When said friend tried to take the patient home, the patient began to act disorderly and aggressive. Friend spoke to patient yesterday and admitted that she took a Xanax. In ED, patient is uncooperative and aggressive. Limited history provided due to alcohol ingestion. PMD: none provided Past Medical History Reviewed: Historical Data, Nursing Documentation, Vital Signs Vital Signs: Last Vital Signs Temp 98.7 F 12/24/17 01:09 Pulse 111 H 12/24/17 01:09 Resp 15 12/24/17 01:09 BP 107/72 12/24/17 01:09 Pulse Ox 99 12/24/17 01:09 - Medical History PMH: No Chronic Diseases Denies: HIV, Chronic Kidney Disease - Surgical History Surgical History: No Surg Hx - Family History Family History: States: Unknown Family Hx - Home Medications Home Medications: Ambulatory Orders Medication Instructions Recorded No Known Home Med 11/23/17 - Allergies Allergies/Adverse Reactions: Allergies Allergy/AdvReac Type Severity Reaction Status Date / Time No Known Allergies Allergy Verified 11/22/17 21:43 Review of Systems ROS Statement: Except As Marked, All Systems Reviewed And Found Negative Physical Exam - Physical Exam Comments: GENERAL APPEARANCE: Patient is awake, alert, oriented x3, uncooperative and yelling. (+) Etoh on breath. SKIN: Warm, dry; (-) cyanosis HEAD: (-) scalp swelling, (-) scalp tenderness. EYES: (-) conjunctival pallor, (-) scleral icterus, (-) nystagmus. ENMT: Mucous membranes moist. Airway patent: (-) stridor. NECK: (-) tenderness, (-) stiffness, (-) lymphadenopathy. HEART AND CARDIOVASCULAR: (-) irregularity; (-) murmur, (-) gallop. CHEST AND RESPIRATORY: (-) rales, (-) rhonchi, (-) wheezes; breath sounds equal. ABDOMEN: Soft, (-) distention, (-) tenderness, (-) guarding. NEURO AND PSYCH: Mental status as above. Affect: flat retail zone specialist: Intact. Pupils equal and reactive; EOMI; (-) facial asymmetry ; tongue and uvula midline. Strength symmetric. - ECG O2 Sat by Pulse Oximetry: 99 Medical Decision Making Medical Decision Makin:05 Initial Plan: --UDS --Etoh serum --Benadryl 50 mg IM --Haldol 5 mg IM --Ativan 2 mg IM --Restraints ordered due to uncooperative Patient is uncooperative, security was called and patient had to be physically restrained due to aggressive behavior. Alcohol 273 0200 Patient is now clam, sleeping, breathing easy and unlabored. Physical restraints were removed. Will continue to observe the patient until she is sober. 0500 On re-evaluation, patient is now awake, alert and oriented x3, she is calm, cooperative, she has no complaints. She is sitting in bed in no acute distress. Repeat neuro exam shows no focal findings. Patient's father is here to take the patient home. As per patient's father, the patient has a drinking problem and she frequently ends up in the ER at least every 2 months for alcohol intoxication with violent behavior due to etoh. He states that he has had to retrieve her from several hospitals in the [facility] in the past few years and she is refusing to get help for it. Patient instructed to follow-up with pmd in 1-2 days without fail. Drink plenty of fluids, advised to seek help for alcohol problem. Return to the emergency room at any time for any new or worsening symptoms. Patient states she fully agrees with and understands discharge instructions. States that she agrees with the plan and disposition. Verbalized and repeated discharge instructions and plan. I have given the patient opportunity to ask any additional questions. Scribe Attestation: Documented by Ivelisse Be, acting as a scribe for Tamica Cole PA-C Provider Scribe Attestation: All medical record entries made by the Scribe were at my direction and personally dictated by me. I have reviewed the chart and agree that the record accurately reflects my personal performance of the history, physical exam, medical decision making, and the department course for this patient. I have also personally directed, reviewed, and agree with the discharge instructions and disposition. Disposition - Clinical Impression Clinical Impression: Alcohol intoxication - Patient ED Disposition Is Patient to be Admitted: No Counseled Patient/Family Regarding: Studies Performed, Diagnosis, Need For Followup - Disposition Disposition Time: 05:00 Condition: STABLE Additional Instructions: Thank you for letting us take care of you today. You were treated for alcohol intoxication. The emergency medical care you received today was directed towards the acute presenting symptoms. Drink plenty of water. Return to the Emergency Department at any time if symptoms worsen, do not improve, or if any other problems arise. Please contact your doctor in 2 days for re-evaluation and follow up. Bring any paperwork you were given at discharge with you along with any medications to your follow up visit. Our treatment cannot replace ongoing medical care by a primary care provider (PCP) outside of the emergency department. Thank you for allowing the [employer] team to be part of your care today. Instructions: Alcohol Abuse and Alcoholism (DC) Forms: [employer] (Afghan) - PA / GUIDE WINDER / Resident Statement MD/DO has reviewed & agrees with the documentation as recorded.
[2017-12-24 06:05] VITALS: BP 113/68; PULSE 91; RESP 14; TEMP 97.8
[2017-12-24 06:06] VITALS: BMI 21.2
[2017-12-24 21:01] VITALS: O2SAT 99
== END 2017-12-24 05:00 | disposition home or self-care (01) ==
LOC: H.ER 23:39
DX: F10.129 Alcohol abuse with intoxication, unspecified (principal); Y90.8 Blood alcohol level of 240 mg/100 ml or more; Z86.59 Personal history of other mental and behavioral disorders
CPT/HCPCS: 80320; 96372; 99284; J1200; J1630; J2060

== ENCOUNTER 2018-07-06 10:02 | Emergency (ER) | payer OTHER ==
[2018-07-06 10:02] VITALS: BMI 21.2
[2018-07-06 10:09] VITALS: RESP 16; O2SAT 100
[2018-07-06] MEDS ORDERED: Oxycodone/Acetaminophen 5/325 mg Tab PO STA (10:50)
--- NOTE | 2018-07-06 10:59 | ED PDOC ---
HPI: Back Time Seen by Provider: 07/06/18 10:18 Chief Complaint (Nursing): Back Pain Additional History Per: Patient Additional Complaint(s): Pt is a 22 y/o female with no pmhx presents with acute back pain after lifting weights at the gym. Reports that at 8am this morning she was pulling a dumbell up with left arm and felt a severe pulling sensation in her lower back. Shortly after she began experiencing sharp shooting pain down her sacrum and both legs (up to knees) that was worsened with any flexion. She states that she took the train from [place] and walked to the hospital (~15min walk). She rates her pain as 8/10 in intensity. Denies taking any medication. She denies any muscle pain, dark urine, or trauma. PMD: None PMHX: Admitted for Rhabdo over the summer after an intense workout. Otherwise denies chronic back pain Medications: Denies Surg: Denies NKDA Social: denies smoking, drugs, or alcohol Past Medical History Reviewed: Historical Data, Nursing Documentation, Vital Signs Vital Signs: Last Vital Signs Temp 98.3 F 07/06/18 10:07 Pulse 101 H 07/06/18 10:07 Resp 16 07/06/18 10:07 BP 136/78 07/06/18 10:07 Pulse Ox 100 07/06/18 10:07 - Medical History PMH: No Chronic Diseases Denies: HIV, Chronic Kidney Disease - Family History Family History: States: Unknown Family Hx - Home Medications Home Medications: Ambulatory Orders Medication Instructions Recorded Cyclobenzaprine [Cyclobenzaprine 5 mg PO HS 14 Days #14 tab 07/06/18 HCl] Naproxen 500 mg PO BID 14 Days #28 tab 07/06/18 - Allergies Allergies/Adverse Reactions: Allergies Allergy/AdvReac Type Severity Reaction Status Date / Time No Known Allergies Allergy Verified 11/22/17 21:43 Physical Exam - Physical Exam Appears: Positive for: In Acute Distress (moderately distressed, crying, walking with normal gait) Head Exam: Positive for: ATRAUMATIC Skin: Positive for: Normal Color Neck: Positive for: Normal, Painless ROM Cardiovascular/Chest: Positive for: Regular Rate, Rhythm Respiratory: Positive for: Normal Breath Sounds. Negative for: Accessory Muscle Use, Crackles, Wheezing Gastrointestinal/Abdominal: Positive for: Normal Exam, Bowel Sounds, Soft. Negative for: Tenderness Back: Positive for: Decreased ROM (Worse with flexion ). Negative for: Muscle Spasm Rectal: Positive for: Deferred Extremity: Positive for: Normal ROM, Other (motor and sensory of LE in tact, able to move with pain limited to flexion of hip joint; Strength of LE +5/5 strength and symmetrical) DTR - Knee (R): 2+ DTR - Knee (L): 2+ DTR - Ankle (R): 2+ DTR - Ankle (L): 2+ Neurologic/Psych: Positive for: Alert, Oriented, Motor/Sensory Deficits - ECG O2 Sat by Pulse Oximetry: 100 Medical Decision Making Medical Decision Making: Lumbar pain likely muscle strain vs herniated disc. No red flag symptoms, no neurological deficits. Seen walking without difficulty. Pain persisted despite receiving Torodol, Percocet, Flexiril, so Lumbar CT ordered. Final report- no abnormal findings. Pain slightly after IM Morphine. Pt seen walking down the tellez w/o discomfort Discussed with patient that pain resolution may occur over some time and physical therapy. Encouraged f/u with PMD. Mother at bedside. Disposition - Clinical Impression Clinical Impression: Low back pain, Muscle strain - Patient ED Disposition Is Patient to be Admitted: No Counseled Patient/Family Regarding: Studies Performed, Diagnosis, Need For Followup, Rx Given - Disposition Referrals: [facility] [Outside] Disposition: Routine/Home Disposition Time: 17:19 Condition: IMPROVED Additional Instructions: Avoid strenuous activity; no gym/contact sports. Ice/Heat therapy. F/U with PMD. If worsens or numbness/tingling/weakness in extremities develop return to ED. Prescriptions: Cyclobenzaprine [Cyclobenzaprine HCl] 5 mg PO HS 14 Days #14 tab Naproxen 500 mg PO BID 14 Days #28 tab Instructions: Low Back Pain in Adults, Muscle Strain Forms: [employer] (Swedish)
[2018-07-06] MEDS ORDERED: Oxycodone/Acetaminophen 5/325 mg Tab ONE (11:21)
[2018-07-06] MEDS ORDERED: Morphine 4 MG/ML VIAL IM STA ×2 (14:03→14:05)
[2018-07-06] MEDS ORDERED: Morphine 4 MG/ML VIAL ONE (15:11)
--- NOTE | 2018-07-06 15:35 | CT ---
Date of service: 07/06/2018 PROCEDURE: CT Lumbar Spine without contrast HISTORY: acute low back pain COMPARISON: None available. TECHNIQUE: Axial computed tomography images were obtained of the lumbar spine without the use of intravenous contrast. Coronal and sagittal reformatted images were created and reviewed. Radiation dose: Total exam DLP = 718.38 mGy-cm. This CT exam was performed using one or more of the following dose reduction techniques: Automated exposure control, adjustment of the mA and/or kV according to patient size, and/or use of iterative reconstruction technique. FINDINGS: VERTEBRAE: Unremarkable. No fracture. Normal alignment. DISCS/SPINAL CANAL/NEURAL FORAMINA: Central canal and neural foramina are widely patent without bony stenosis identified throughout. No gross evidence to suggest disc herniation. MRI can be utilized for added characterization if clinically warranted. PARASPINAL SOFT TISSUES: Unremarkable. OTHER FINDINGS: Incidental distended urinary bladder partially captured in this exam. IMPRESSION: No fracture, spondylolisthesis, bony central canal or neural foraminal stenosis appreciated. No destructive bony lesion identified. MRI is available follow-up if clinically warranted.
[2018-07-06 23:30] VITALS: BP 128/76; PULSE 88; TEMP 97.9
== END 2018-07-06 17:42 | disposition home or self-care (01) ==
LOC: H.ER 10:02
DX: S39.012A Strain of muscle, fascia and tendon of lower back, initial encounter (principal); X50.9XXA Other and unspecified overexertion or strenuous movements or postures, initial encounter; Y93.B3 Activity, free weights
CPT/HCPCS: 72131; 81025; 96372; 99283; J1885; J2270

== ENCOUNTER 2018-10-04 00:47 | Inpatient (IN) | payer OTHER ==
[2018-10-04 00:48] VITALS: BMI 21.2
[2018-10-04] MEDS ORDERED: Sodium Chloride 0.9% 1,000 ML IV STA ×3 (01:11→05:54)
--- NOTE | 2018-10-04 01:38 | ED PDOC ---
HPI: Psych/Substance Abuse Time Seen by Provider: 10/04/18 00:59 Chief Complaint (Nursing): Psychiatric Evaluation Chief Complaint (Provider): Overdose History Per: Patient History/Exam Limitations: no limitations Onset/Duration Of Symptoms: Other (took medications around 2200) Current Symptoms Are (Timing): Still Present Additional Complaint(s): 23 year old female with pmhx of chronic lower back pain and depression presents to the ED via EMS for evaluation s/p overdose. Patient reports that around 2200 tonight she took 15-20 tabs of 5mg Valium, 4 tabs of 200mg Advil, and 10-15 tabs of 10mg Flexeril along with alcohol. She states she has been angry and frustrated lately secondary to how her chronic back pain has affected her lifestyle, and knows she needs to be on medication for her depression, but stopped taking Cymbalta and Trazadone because they were making her "crazy." Patient reports she also is on acne medication, but did not overdose on anything besides the drugs mentioned above. Otherwise, denies illicit drug use and homicidal ideation. PMD: none provided Past Medical History Reviewed: Historical Data, Nursing Documentation, Vital Signs Vital Signs: Last Vital Signs Temp 97.5 F L 10/04/18 01:00 Pulse 118 H 10/04/18 01:00 Resp 18 10/04/18 01:00 BP 118/71 10/04/18 01:00 Pulse Ox 100 10/04/18 01:00 Primary Care Provider: FAMILY PROVIDER,NO - Medical History PMH: Back Problems, Depression, Chronic Pain (back) Denies: HIV, Chronic Kidney Disease - Surgical History Surgical History: No Surg Hx - Family History Family History: States: Unknown Family Hx - Social History Current smoker - smoking cessation education provided: No Alcohol: Social Drugs: Prescription medications - Home Medications Home Medications: Ambulatory Orders Medication Instructions Recorded Cyclobenzaprine [Cyclobenzaprine 5 mg PO TID 10/04/18 HCl] Gabapentin [Neurontin] 300 mg PO TID 10/04/18 Tizanidine HCl [Zanaflex Capsule] 4 mg PO TID 10/04/18 diaZEpam [Valium] 5 mg PO TID 10/04/18 - Allergies Allergies/Adverse Reactions: Allergies Allergy/AdvReac Type Severity Reaction Status Date / Time codeine Allergy VOMITING Verified 10/04/18 01:11 Review of Systems ROS Statement: Except As Marked, All Systems Reviewed And Found Negative Psych: Positive for: Depression, Suicidal ideation. Negative for: Other (homicidal ideation) Physical Exam - Reviewed Nursing Documentation Reviewed: Yes Vital Signs Reviewed: Yes - Physical Exam Appears: Positive for: No Acute Distress Head Exam: Positive for: ATRAUMATIC, NORMOCEPHALIC Skin: Positive for: Normal Color, Warm Eye Exam: Positive for: Normal appearance ENT: Positive for: Normal ENT Inspection Neck: Positive for: Normal, Painless ROM, Supple Cardiovascular/Chest: Positive for: Tachycardia Respiratory: Positive for: Normal Breath Sounds. Negative for: Respiratory Dist ress Gastrointestinal/Abdominal: Positive for: Normal Exam, Soft. Negative for: Tenderness Back: Positive for: Normal Inspection Extremity: Positive for: Normal ROM (all extremities) Neurological/Psych: Positive for: Awake, Alert, Mood/Affect (depressed), Other (speech slurred but very intelligible) - Laboratory Results Result Diagrams: 10/04/18 01:48 10/04/18 01:48 - ECG O2 Sat by Pulse Oximetry: 100 (RA) Pulse Ox Interpretation: Normal - Critical Care Total Time (In Min): 30 Documented Critical Care: Time excludes all time spent performint seperately billable procedures Medical Decision Making Medical Decision Making: Time: 110 Initial Impression: 23 year old female s/p polysubstance OD Initial Plan: --Contact poison control services --Alcohol serum --CMP --Creatine phosphokinase --Drug screen --Magnesium and phosphorus chemistry --Salicylate --TSH --U-preg --U-dip --CBC with differential --PTT / PT --Normal saline IV --Zofran 4mg IV --Crisis evaluation --1:1 observation --EKG --Accucheck --Reevaluation 0324 Labs reviewed with no clinically significant abnormalities besides positive benzodiazepine on u-tox and elevated alcohol serum level. Poison control made recommendation for continuous further monitoring as well supportive care. Patient is to be placed on telemetry at this time under Dr. Monae with diagnosis of benzo / flexeril OD. Condition guarded. Scribe Attestation: Documented by Zoë Espinoza, acting as a scribe for Jerrod Canales MD. Provider Scribe Attestation: All medical record entries made by the Scribe were at my direction and personall y dictated by me. I have reviewed the chart and agree that the record accurately reflects my personal performance of the history, physical exam, medical decision making, and the department course for this patient. I have also personally directed, reviewed, and agree with the discharge instructions and disposition. Disposition - Clinical Impression Clinical Impression: Overdose - Patient ED Disposition Is Patient to be Admitted: Yes - Disposition Disposition Time: 03:24 (to telemetry) Condition: GUARDED - Pt Status Changed To: Hospital Disposition Of: Inpatient - Admit Certification Admit to Inpatient:: After my assessment, the patient will require hospitalization for at least two midnights. This is because of the severity of symptoms shown, intensity of services needed, and/or the medical risk in this patient being treated as an outpatient.
[2018-10-04 02:02] LABS: BASO % 0.7 % (0.0-2.0); EOS # 0.1 K/uL (0.0-0.7); EOS % 1.5 % (0.0-4.0); HEMOGLOBIN 13.2 g/dL (12.0-16.0); LYMPH # 2.7 K/uL (1.0-4.3); LYMPH % 41.4 % (20.0-40.0); MEAN CORPUSCULAR HEMOGLOBIN 30.8 pg (27.0-31.0); MEAN CORPUSCULAR HGB CONC 33.5 g/dL (33.0-37.0); MEAN PLATELET VOLUME 8.3 fl (7.2-11.7); MONO # 0.5 K/uL (0.0-0.8); MONO % 7.6 % (0.0-10.0); NEUT # 3.2 K/uL (1.8-7.0); NEUT % 48.8 % (50.0-75.0); NRBC % 0.1 % (0.0-0.0); RBC 4.28 Mil/uL (3.80-5.20); RED CELL DISTRIBUTION WIDTH 13.7 % (11.5-14.5); WHITE BLOOD COUNT 6.6 K/uL (4.8-10.8)
[2018-10-04 02:05] LABS: PROTHROMBIN TIME 11.7 Seconds (9.8-13.1)
[2018-10-04 02:08] LABS: BARBITURATES, UR NEGATIVE (NEGATIVE); BENZODIAZEPINES, UR POSITIVE (NEGATIVE); OPIATES, UR NEGATIVE (NEGATIVE); PHENCYCLIDINE, UR NEGATIVE (NEGATIVE)
[2018-10-04 02:08] LABS: PARTIAL THROMBOPLASTIN TIME 29.5 Seconds (25.6-37.1)
[2018-10-04 02:16] LABS: ALB/GLOB RATIO 1.6 (1.0-2.1); ALBUMIN 4.7 g/dL (3.5-5.0); ALT/SGPT 19 U/L (9-52); AST/SGOT 32 U/L (14-36); BLOOD UREA NITROGEN 12 mg/dl (7-17); CALCIUM 8.8 mg/dL (8.4-10.2); GFR NON-AFRICAN AMERICAN > 60
--- NOTE | 2018-10-04 11:28 | CARD ---
APPROVED REPORT Date of service: 10/04/2018 EKG Measurement Heart [id number] <Conclusion> Sinus tachycardia Rightward axis Borderline ECG
[2018-10-04] MEDS: Sodium Chloride 0.9% 1,000 ML IV SCH (16:41)
--- NOTE | 2018-10-05 01:03 | CP.PCM.HP ---
History of Present Illness - History of Present Illness History of Present Illness: CC: Benzo/Flexeril overdose. HPI: 23 y/o female pt with a PMH of chronic back Problems and depression presented to the ED for overdose on benzodiazepines and Flexeril. As per reports , the pt had been feeling depressed over chronic, debilitating back pain. Due to this, the pt overdose on Valium, Flexeril, Advil, and alcohol together. Of note, the pt stopped taking her psych medication (Cymbalta and Trazodone) due to secondary effects. Pt seen and assessed in ED, at present the pt is lethargic and only responsive to tactile stimuli s/p overdose. She will be monitored for 1:1 safety precautions. PMH: Back Problems, Depression, Chronic Pain (back). PSH: None. Allergies: codeine. Review of Systems: Unobtainable; pt lethargic and only responsive to vigorous tactile stimuli s/p overdose. Objective Appears: Calm, Non-toxic, No Acute Distress. Head Exam: NORMAL INSPECTION, normocephalic. Eye Exam: Normal eye inspection, EOMI, PERRLA. Respiratory Exam: NORMAL BREATHING PATTERN, breath sounds CTA. Cardiovascular Exam: +S1, +S2. RRR. GI & Abdominal Exam: Soft, non-tender, non-distended. Neurological Exam: Lethargic, arousable to vigorous tactile stimuli only. Psychiatric exam: Lethargic. Skin exam: Pale, warm and dry. Assessment/Impression/Plan: 1.) Benzo/Flexeril overdose. -Poison control aware. -1:1 safety observations. -NS @ 100 ml/hr. -Neuro checks. -Psychiatry consult input appreciated. Present on Admission - Present on Admission Any Indicators Present on Admission: No Past Patient History - Past Medical History & Family History Past Medical History?: Yes - Past Social History Smoking Status: Never Smoked - CARDIAC Hx Cardiac Disorders: No - PULMONARY Hx Respiratory Disorders: No - NEUROLOGICAL Hx Neurological Disorder: No - HEENT Hx HEENT Problems: No - RENAL Hx Chronic Kidney Disease: No - ENDOCRINE/METABOLIC Hx Endocrine Disorders: No - HEMATOLOGICAL/ONCOLOGICAL Hx Blood Disorders: No Hx AIDS: No Hx Human Immunodeficiency Virus (HIV): No - INTEGUMENTARY Hx Dermatological Problems: No - MUSCULOSKELETAL/RHEUMATOLOGICAL Hx Musculoskeletal Disorders: Yes Hx Back Pain: Yes (chronic back pain) Hx Falls: No - GASTROINTESTINAL Hx Gastrointestinal Disorders: No - GENITOURINARY/GYNECOLOGICAL Hx Genitourinary Disorders: No - PSYCHIATRIC Hx Psychophysiologic Disorder: Yes Hx Depression: Yes Hx Substance Use: No - SURGICAL HISTORY Hx Surgeries: No - ANESTHESIA Hx Anesthesia: No Hx Anesthesia Reactions: No Hx Malignant Hyperthermia: No Has any member of the family had a problem w/ anesthesia?: No Meds Allergies/Adverse Reactions: Allergies Allergy/AdvReac Type Severity Reaction Status Date / Time codeine Allergy VOMITING Verified 10/04/18 01:11 Results - Vital Signs Recent Vital Signs: Last Vital Signs Temp 97.3 F L 10/05/18 00:09 Pulse 71 10/05/18 00:09 Resp 18 10/05/18 00:09 BP 91/55 L 10/05/18 00:09 Pulse Ox 99 10/05/18 00:09 - Labs Result Diagrams: 10/04/18 01:48 10/04/18 01:48 Labs: Laboratory Results - last 24 hr 10/04/18 10/04/18 10/04/18 01:35 01:42 01:48 WBC RBC Hgb Hct MCV MCH MCHC RDW Plt Count MPV Neut % (Auto) Lymph % (Auto) Blanco % (Auto) Eos % (Auto) Baso % (Auto) Neut # (Auto) Lymph # (Auto) Blanco # (Auto) Eos # (Auto) Baso # (Auto) PT INR APTT Sodium 140 Potassium 3.9 Chloride 104 Carbon Dioxide 23 Anion Gap 17 BUN 12 Creatinine 0.6 L Est GFR ( Amer) > 60 Est GFR (Non-Af Amer) > 60 POC Glucose (mg/dL) 100 Random Glucose 92 Calcium 8.8 Magnesium 2.2 Total Bilirubin 0.3 AST 32 ALT 19 Alkaline Phosphatase 109 Total Creatine Kinase 67 Total Protein 7.7 Albumin 4.7 Globulin 3.0 Albumin/Globulin Ratio 1.6 TSH 3rd Generation 1.45 Salicylates Urine Opiates Screen Negative Urine Methadone Screen Negative Acetaminophen Ur Barbiturates Screen Negative Ur Phencyclidine Scrn Negative Ur Amphetamines Screen Negative U Benzodiazepines Scrn Positive U Oth Cocaine Metabols Negative U Cannabinoids Screen Negative Alcohol, Quantitative 136 H 10/04/18 10/04/18 10/04/18 01:48 01:48 01:48 WBC 6.6 RBC 4.28 Hgb 13.2 Hct 39.3 MCV 92.0 MCH 30.8 MCHC 33.5 RDW 13.7 Plt Count 274 MPV 8.3 Neut % (Auto) 48.8 L Lymph % (Auto) 41.4 H Blanco % (Auto) 7.6 Eos % (Auto) 1.5 Baso % (Auto) 0.7 Neut # (Auto) 3.2 Lymph # (Auto) 2.7 Blanco # (Auto) 0.5 Eos # (Auto) 0.1 Baso # (Auto) 0.0 PT 11.7 INR 1.0 APTT 29.5 Sodium Potassium Chloride Carbon Dioxide Anion Gap BUN Creatinine Est GFR ( Amer) Est GFR (Non-Af Amer) POC Glucose (mg/dL) Random Glucose Calcium Magnesium Total Bilirubin AST ALT Alkaline Phosphatase Total Creatine Kinase Total Protein Albumin Globulin Albumin/Globulin Ratio TSH 3rd Generation Salicylates < 1.0 Urine Opiates Screen Urine Methadone Screen Acetaminophen Ur Barbiturates Screen Ur Phencyclidine Scrn Ur Amphetamines Screen U Benzodiazepines Scrn U Oth Cocaine Metabols U Cannabinoids Screen Alcohol, Quantitative 10/04/18 02:45 WBC RBC Hgb Hct MCV MCH MCHC RDW Plt Count MPV Neut % (Auto) Lymph % (Auto) Blanco % (Auto) Eos % (Auto) Baso % (Auto) Neut # (Auto) Lymph # (Auto) Blanco # (Auto) Eos # (Auto) Baso # (Auto) PT INR APTT Sodium Potassium Chloride Carbon Dioxide Anion Gap BUN Creatinine Est GFR ( Amer) Est GFR (Non-Af Amer) POC Glucose (mg/dL) Random Glucose Calcium Magnesium Total Bilirubin AST ALT Alkaline Phosphatase Total Creatine Kinase Total Protein Albumin Globulin Albumin/Globulin Ratio TSH 3rd Generation Salicylates Urine Opiates Screen Urine Methadone Screen Acetaminophen < 10.0 L Ur Barbiturates Screen Ur Phencyclidine Scrn Ur Amphetamines Screen U Benzodiazepines Scrn U Oth Cocaine Metabols U Cannabinoids Screen Alcohol, Quantitative Assessment & Plan (1) Overdose Status: Acute
[2018-10-05] MEDS: Sodium Chloride 0.9% 1,000 ML IV SCH ×2 (03:56→13:42)
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
--- NOTE | 2018-10-05 11:13 | CP.PCM.PCO ---
Assessment/Plan - Assessment and Plan (Free Text) Assessment: Patient seen and examined with Dr. Feng Patient awake alert oriented x3. Lying in bed, in no acute distress. Vital signs stable, hr 90s SR, bp controlled 108/69 this morning. Labs reviewed, sp bolus IVF, responded well. Dehydration resolved. Plan discussed with Psychiatrist Dr Becker who recommends [facility] screening for involuntary admission. Patient medically cleared for discharge to psych.
--- NOTE | 2018-10-06 16:39 | CP.PCM.CON ---
History of Present Illness - History of Present Illness History of Present Illness: Psychiatry consult follow-up note CC: "I just want to go home." HPI: 23 yo female w/ h/o chronic back pain, anorexia nervosa and depression, admitted s/p intentional overdose of Valium, Flexeril, Advil and alcohol. She is irritable w/ typewriter tester, does not believe she needs treatment or medications. She has poor insight/judgment regarding recent overdose. She is not cooperative w/ interview. Industrial Engineering Intern informed patient that she will be transferred for involuntary psychiatric admission. Impression: 23 yo female w/ h/o chronic back pain, anorexia nervosa and depression, admitted s/p intentional overdose of Valium, Flexeril, Advil and alcohol. Patient is an acute danger to self and will be transferred for involuntary psychiatric admission. -PC completed by typewriter tester Past Patient History - Past Medical History & Family History Past Medical History?: Yes - Past Social History Smoking Status: Never Smoked - CARDIAC Hx Cardiac Disorders: No - PULMONARY Hx Respiratory Disorders: No - NEUROLOGICAL Hx Neurological Disorder: No - HEENT Hx HEENT Problems: No - RENAL Hx Chronic Kidney Disease: No - ENDOCRINE/METABOLIC Hx Endocrine Disorders: No - HEMATOLOGICAL/ONCOLOGICAL Hx Blood Disorders: No Hx AIDS: No Hx Human Immunodeficiency Virus (HIV): No - INTEGUMENTARY Hx Dermatological Problems: No - MUSCULOSKELETAL/RHEUMATOLOGICAL Hx Musculoskeletal Disorders: Yes Hx Back Pain: Yes (chronic back pain) Hx Falls: No - GASTROINTESTINAL Hx Gastrointestinal Disorders: No - GENITOURINARY/GYNECOLOGICAL Hx Genitourinary Disorders: No - PSYCHIATRIC Hx Psychophysiologic Disorder: Yes Hx Depression: Yes Hx Substance Use: No - SURGICAL HISTORY Hx Surgeries: No - ANESTHESIA Hx Anesthesia: No Hx Anesthesia Reactions: No Hx Malignant Hyperthermia: No Has any member of the family had a problem w/ anesthesia?: No Meds Allergies/Adverse Reactions: Allergies Allergy/AdvReac Type Severity Reaction Status Date / Time codeine Allergy VOMITING Verified 10/04/18 01:11 - Medications Medications: Current Medications Acetaminophen (Tylenol 325mg Tab) 650 mg PO Q6 PRN PRN Reason: Pain, Mild (1-3) Last Admin: 10/05/18 22:59 Dose: 650 mg Diphenhydramine HCl (Benadryl) 25 mg PO HS PRN PRN Reason: Insomnia Last Admin: 10/05/18 22:59 Dose: 25 mg Results - Vital Signs Recent Vital Signs: Last Vital Signs Temp 98.2 F 10/06/18 16:10 Pulse 92 H 10/06/18 16:10 Resp 18 10/06/18 16:10 BP 115/77 10/06/18 16:10 Pulse Ox 100 10/06/18 16:10 - Labs Result Diagrams: 10/04/18 01:48 10/04/18 01:48
--- NOTE | 2018-10-06 17:22 | RAD ---
Date of service: 10/06/2018 HISTORY: medical clearance COMPARISON: No prior. TECHNIQUE: 1 view obtained. FINDINGS: LUNGS: No active pulmonary disease. PLEURA: No significant pleural effusion identified, no pneumothorax apparent. CARDIOVASCULAR: No aortic atherosclerotic calcification present. Normal cardiac size. No pulmonary vascular congestion. OSSEOUS STRUCTURES: No significant abnormalities. VISUALIZED UPPER ABDOMEN: Normal. OTHER FINDINGS: None. IMPRESSION: No acute cardiopulmonary disease appreciated.
[2018-10-06 19:53] VITALS: BP 116/78; RESP 17; TEMP 97.9; O2SAT 98
[2018-10-06 22:18] VITALS: PULSE 90
== END 2018-10-06 23:05 | DRG 918 ==
LOC: H.ER 00:47 → H.ERHOLD 03:24 → H.TEL 15:49
PROVIDERS: ADMIT Family Medicine; ATTEND Family Medicine
DX: T42.4X1A Poisoning by benzodiazepines, accidental (unintentional), initial encounter (principal); M62.82 Rhabdomyolysis; T48.1X1A Poisoning by skeletal muscle relaxants [neuromuscular blocking agents], accidental (unintentional), initial encounter; Z86.59 Personal history of other mental and behavioral disorders; Z91.5 Personal history of self-harm; F41.9 Anxiety disorder, unspecified; T50.901A Poisoning by unspecified drugs, medicaments and biological substances, accidental (unintentional), initial encounter; Z79.899 Other long term (current) drug therapy; E86.0 Dehydration; F10.10 Alcohol abuse, uncomplicated; F13.10 Sedative, hypnotic or anxiolytic abuse, uncomplicated; F32.9 Major depressive disorder, single episode, unspecified; F41.1 Generalized anxiety disorder; G89.29 Other chronic pain